=== PATIENT | male | born 1985 | race Native Hawaiian/Other Pacific Islander ===

== ENCOUNTER 2017-06-27 12:45 | Emergency (ER) | payer OTHER ==
[~2017-06-27] VITALS: Ht 182.9 cm; Wt 113.4 kg
[2017-06-27 13:30] VITALS: BP 136/72; TEMP 97.3
== END 2017-06-27 13:32 | disposition home or self-care (01) ==
LOC: ED 12:45
DX: R05 Cough (principal); K08.89 Other specified disorders of teeth and supporting structures; H92.03 Otalgia, bilateral
CPT/HCPCS: 99281

== ENCOUNTER 2022-09-09 16:37 | Emergency (ER) | payer OTHER ==
[~2022-09-09] VITALS: Ht 182.9 cm; Wt 99.8 kg
[2022-09-09 16:48] VITALS: BP 138/77; TEMP 98.9
== END 2022-09-09 18:14 | disposition home or self-care (01) ==
LOC: ED 16:37
DX: J02.9 Acute pharyngitis, unspecified (principal); Z20.822 Contact with and (suspected) exposure to COVID-19; F17.210 Nicotine dependence, cigarettes, uncomplicated
CPT/HCPCS: 87502; 87635; 87651; 99283; J0696; U0003